=== PATIENT | male | born 1980 | race Caucasian/White ===

== ENCOUNTER 2016-05-19 08:34 | Emergency (ER) | payer OTHER ==
[~2016-05-19] VITALS: Ht 172.7 cm; Wt 114.0 kg
[2016-05-19 08:47] VITALS: TEMP 36.7; Ht 172.7 cm; Wt 114.0 kg
[2016-05-19] MEDS ORDERED: MULT-506 PO (09:26)
--- NOTE | 2016-05-19 09:53 | DIAGNOSTIC IMAGING REPORT ---
LEFT KNEE 1 OR 2 VIEWS ROUTINE CLINICAL HISTORY: Left knee pain following injury. COMPARISON: None FINDINGS: Alignment of the left knee is anatomic. No acute fracture is identified. There is a possible trace left knee joint effusion. Joint spaces are preserved. IMPRESSION: 1. No acute fracture. 2. Possible trace left knee joint effusion. Electronically signed by: Sawyer Hernandez M.D. 05/19/2016 9:52 AM Dictated Date/Time: 05/19/2016 9:51 AM
--- NOTE | 2016-05-19 10:33 | EMERGENCY ROOM VISIT NOTE ---
History First contact with patient: 08:55 Chief Complaint: KNEEPAIN Stated Complaint: KNEE PAIN,FINGER PAIN History of Present Illness The patient is a 35 year old male who presents to the Emergency Room with complaints of left knee pain. The patient states yesterday at work he slipped on a wet floor and twisted his left knee. He states since that time it hurts to bear weight on the leg or hurts to move the knee. The patient denies any hip or ankle pain. The patient admits that he had a prior strain to the anterior cruciate ligament in the past when he lived in a different state. He denies any surgery to the knee. The patient also would like me to look at his left fifth finger. He states that he had a flexor tendon repair on the finger in the past. He is now complaining of pain with movement but denies any new trauma. The patient also states that sometimes it feels like he cannot completely straighten his finger. Review of Systems 10 system review was performed and was negative unless stated otherwise history of present illness. Past Medical/Surgical History Surgical Problems: (1) H/O hernia repair Left fifth finger tendon repair Concussion, peptic ulcer disease Family History Patient reports no known family medical history. Social History Smoking Status: Never Smoker Marital Status: single Housing Status: unknown Occupation Status: employed Current/Historical Medications Scheduled Multivitamin (Multivitamin), 1 TAB PO DAILY Allergies Coded Allergies: Codeine (Unverified Allergy, Unknown, vomiting, 05/19/16) Lactose Intolerance (GI) (Unverified Allergy, Unknown, gi issues, 05/19/16) Uncoded Allergies: RED MEAT (Allergy, Intermediate, GI ISSUES, 08/24/15) Physical Exam Vital Signs Date Time Temp Pulse Resp B/P Pulse Ox O2 Delivery O2 Flow Rate FiO2 05/19/16 08:47 36.7 77 16 131/90 96 Room Air Physical Exam PHYSICAL EXAM: Vital Signs: Reviewed Nurse's notes. GEN.: MENTAL STATUS: 35-year-old white male appears in no acute distress. MENTAL Status: Alert, oriented, and cooperative. LEFT KNEE: No gross bony deformity noted. No erythema or edema noted. There is no joint effusion. The range of motion is limited secondary to pain. There is no ligamentous instability. The skin is normal and intact. LEFT FINGER: No gross bony deformity noted. There is an incision noted on the palmar aspect at the MCP joint. He does have tenderness palpation over this area as well as over the PIP joint. Limited range of motion. Medical Decision & Procedures ER Provider Diagnostic Interpretation: LEFT KNEE 1 OR 2 VIEWS ROUTINE CLINICAL HISTORY: Left knee pain following injury. COMPARISON: None FINDINGS: Alignment of the left knee is anatomic. No acute fracture is identified. There is a possible trace left knee joint effusion. Joint spaces are preserved. IMPRESSION: 1. No acute fracture. 2. Possible trace left knee joint effusion. Electronically signed by: Sawyer Hernandez M.D. 05/19/2016 9:52 AM Dictated Date/Time: 05/19/2016 9:51 AM ED Course The patient was evaluated. The patient was offered pain medication but declined. X-ray of the left knee was ordered and interpreted by the radiologist and myself as above without any acute findings. There was a small trace of joint effusion. The patient is placed in Cristobal wrap and given crutches and discharged home in stable condition. Medical Decision Differential diagnosis include ligament tear, knee strain, meniscal tear Impression Primary Impression: Sprain of knee Additional Impression: left fifth finger pain Departure Information Dispostion Home / Self-Care Condition GOOD Referrals No Doctor, Assigned (PCP) Sly Chiang MD Sefter, John C., DO Forms HOME CARE DOCUMENTATION FORM, IMPORTANT VISIT INFORMATION Patient Instructions [facility] Additional Instructions Tylenol as needed for pain. Wear Cristobal wrap and use crutches for ambulation until pain is tolerable without them. If symptoms are not improving in 3-5 days , follow-up with Dr. Lewis. If your hand pain becomes intolerable recommend appointment with Dr. Chiang, hand surgeon. Problem Qualifiers Primary Impression: Sprain of knee Encounter type: initial encounter Laterality: left
[2016-05-19 10:43] VITALS: BP 131/90; PULSE 69; O2SAT 97
== END 2016-05-19 10:44 | disposition home or self-care (01) ==
LOC: C.EDB 08:37
DX: S83.92XA Sprain of unspecified site of left knee, initial encounter (principal); M79.645 Pain in left finger(s); W01.0XXA Fall on same level from slipping, tripping and stumbling without subsequent striking against object, initial encounter; X50.1XXA Overexertion from prolonged static or awkward postures, initial encounter; Y92.69 Other specified industrial and construction area as the place of occurrence of the external cause; Z87.11 Personal history of peptic ulcer disease; Z87.820 Personal history of traumatic brain injury; Z98.890 Other specified postprocedural states

== ENCOUNTER → 2016-07-26 | Outpatient (CLI) | payer OTHER ==
[~2016-07-26] MED LIST: AMT50 PO; MULT-506 PO
--- NOTE | 2016-07-26 15:00 | DIAGNOSTIC IMAGING REPORT ---
RIGHT FOOT MIN 3 VIEWS ROUTINE CLINICAL HISTORY: Right foot pain COMPARISON: None. DISCUSSION: No acute fractures or dislocations are visualized. There are small spurs arising from the lateral base of the first metatarsal, and medial aspect of the proximal second metatarsal shaft. There is a prominent lateral process of the base the first metatarsal with a modeling deformity of the medial base the second metatarsal IMPRESSION: 1. No acute fractures 2. Arthritic changes involving the lateral base of the first metatarsal and medial aspect of the proximal second metatarsal Electronically signed by: Alpesh Alaniz M.D. 07/26/2016 2:58 PM Dictated Date/Time: 07/26/2016 2:54 PM
== END | disposition home or self-care (01) ==
LOC: C.RADBC 14:35
PROVIDERS: ATTEND Family Medicine
DX: M79.671 Pain in right foot (principal)

== ENCOUNTER → 2016-08-13 | Outpatient (CLI) | payer OTHER ==
--- NOTE | 2016-08-13 11:23 | DIAGNOSTIC IMAGING REPORT ---
CERVICAL SPINE 5 VIEWS HISTORY: M54.2 [id number] COMPARISON: None. FINDINGS: The cervical spine is visualized from C1 through the superior endplate of T1. There is no fracture. No subluxation. Disc spaces are preserved. Prevertebral soft tissues and the atlantodens interval are intact. Straightening of the cervical spine. IMPRESSION: No fracture or subluxation within the cervical spine. No significant degenerative disc disease. Straightening of the cervical spine. Electronically signed by: Bright Ordaz M.D. 08/13/2016 11:22 AM Dictated Date/Time: 08/13/2016 11:20 AM
== END | disposition home or self-care (01) ==
LOC: C.RADBC 11:02
PROVIDERS: ATTEND Family Medicine
DX: M54.2 Cervicalgia (principal)

== ENCOUNTER 2016-08-23 10:36 | Emergency (ER) | payer OTHER ==
[~2016-08-23] VITALS: Ht 200.7 cm; Wt 103.7 kg
[~2016-08-23 10:36] MED LIST changes: -AMT50 PO
[2016-08-23 10:40] VITALS: TEMP 36.4; Ht 200.7 cm; Wt 103.7 kg
[2016-08-23] MEDS ORDERED: AMT50 PO (10:48)
[2016-08-23 12:15] LABS: BASO % 0.4 %; BASO ABS # 0.03 K/uL (0-0.2); COMPLETE YES; HEMATOCRIT 43.3 % (42-52); IG% 0.1 %; LYMPH % 26.1 %; LYMPH ABS # 1.83 K/uL (1.2-3.4); MEAN CELL VOLUME 85.2 fL (80-100); MEAN CORPUSCULAR HEMOGLOBIN 29.9 pg (25-34); MEAN CORPUSCULAR HGB CONC 35.1 g/dl (32-36); MEAN PLATELET VOLUME 9.4 fL (7.4-10.4); MONO % 9.3 %; NEUT % 62.1 %; PLATELET COUNT 271 K/uL (130-400); RED BLOOD COUNT 5.08 M/uL (4.7-6.1); WHITE BLOOD COUNT 7.02 K/uL (4.8-10.8)
--- NOTE | 2016-08-23 12:17 | DIAGNOSTIC IMAGING REPORT ---
CHEST 2 VIEWS ROUTINE CLINICAL HISTORY: SOB dyspnea COMPARISON STUDY: No previous studies for comparison. FINDINGS: The bones soft tissues and hemidiaphragms are normal. The cardiomediastinal silhouette is normal. The lungs are clear. The pulmonary vasculature is normal. IMPRESSION: Negative chest. Electronically signed by: Keyon Cole M.D. 08/23/2016 12:15 PM Dictated Date/Time: 08/23/2016 12:15 PM
[2016-08-23 12:30] LABS: BUN/CREATININE RATIO 9.1 (10-20); CALCIUM 8.9 mg/dl (8.5-10.1); CREATININE 0.89 mg/dl (0.60-1.40); POTASSIUM 4.1 mmol/L (3.5-5.1)
[2016-08-23 12:41] LABS: THYROID STIMULATING HORMONE 2.58 uIu/ml (0.300-4.500)
--- NOTE | 2016-08-23 12:59 | DIAGNOSTIC IMAGING REPORT ---
CT SCAN OF THE BRAIN WITHOUT IV CONTRAST CLINICAL HISTORY: Headache. COMPARISON STUDY: CT of the brain dated 08/24/2015. TECHNIQUE: Unenhanced axial CT scan of the brain is performed from the vertex to the skull base. Automated dose control exposure was utilized. CT DOSE: 1115.89 mGy.cm FINDINGS: Brain parenchyma: The brain parenchyma is normal in appearance. There is no hemorrhage, mass effect, or evidence of acute territorial ischemia by CT criteria. Rucker-white matter is preserved. No extra-axial fluid collection is seen. Ventricles, sulci, cisterns: Normal in configuration. Intracranial vasculature: The visualized intracranial vasculature at the skull base is normal in appearance. Calvarium: Unremarkable. Sinuses and mastoids: There is trace mucosal thickening within the maxillary antra. The remaining visualized paranasal sinuses are clear. The mastoid air cells are well pneumatized. Orbits: The bony orbits are grossly intact. IMPRESSION: No acute intracranial abnormality. Electronically signed by: Tonny Dominguez M.D. 08/23/2016 12:57 PM Dictated Date/Time: 08/23/2016 12:56 PM
--- NOTE | 2016-08-23 13:01 | DIAGNOSTIC IMAGING REPORT ---
CT SCAN OF THE CERVICAL SPINE CLINICAL HISTORY: Neck pain. COMPARISON STUDY: Radiographs of the cervical spine dated 08/13/2016. TECHNIQUE: CT scan of the cervical spine is performed from the skull base to the upper thoracic spine. Images are reviewed in the axial, sagittal, and coronal planes. IV contrast was not administered for this examination. CT DOSE: Reported separately and the concurrently performed CT scan of the brain. FINDINGS: Skeletal structures: The skeletal structures are well mineralized. There is no evidence of fracture or subluxation involving the cervical spine. Vertebral body height and alignment are maintained. There is straightening of the cervical lordosis with mild reversal centered at C4-C5. The odontoid process and lateral masses are intact. The atlantoaxial articulation is preserved. The spinous processes appear intact. Intervertebral discs: The disc spaces are well maintained. Central canal: Widely patent. Soft tissues: The prevertebral and paraspinous soft tissues are within normal limits. Calvarium: The visualized calvarium at the skull base appears intact. Brain parenchyma: Partially visualized brain parenchyma the skull base is within normal limits. Sinuses and mastoids: The visualized paranasal sinuses are clear. The mastoid air cells are well pneumatized. Lung apices: Clear as visualized. IMPRESSION: Unremarkable CT scan of the cervical spine. Electronically signed by: Tonny Dominguez M.D. 08/23/2016 12:59 PM Dictated Date/Time: 08/23/2016 12:57 PM
[2016-08-23 13:12] LABS: LYME DISEASE AB IGG NEG (NEG); LYME DISEASE AB IGM NEG (NEG)
[2016-08-23 14:05] VITALS: BP 138/70; PULSE 67; O2SAT 95
--- NOTE | 2016-08-23 19:57 | EMERGENCY ROOM VISIT NOTE ---
ED Visit Note First contact with patient: 11:23 Chief Complaint: Neck pain. History of Present Illness: Mr. Herring is a 35-year-old white male who ambulates into the ED complaining of pain at the base of the skull and the top of the cervical spine. Historically he reports he has seen his PCP, Dr. Vitaliy Galarza, for migraine headaches and neck pain. Patient feels these are 2 separate issues and believes his PCP does also. He has been put on muscle relaxers for his neck pain but has only used it twice because he did not feel like it was working and he has been using amitriptyline for his migraine headaches which she feel is working. He also reports historically that he had a concussion approximately one year ago and he is currently in physical therapy and he reports Dr. Galarza is unsure if his headaches and neck pain are related to that injury and this is a postconcussive syndrome. Patient reports approximately 10 days ago he started having pain at the base of the skull and the top of the cervical spine. He feels it's more prominent on the left than the right but it is present in both areas. He describes his pain as a burning sensation. At rest he rates his discomfort 2/10 and with rotational movements and extension of the cervical spine his pain becomes 8/10. He has not identified any other aggravating factors. He has moderate relief when he is not moving his head. He has not taken anything additional for pain. Associated with his pain he reports with movement his becomes dizzy, short of breath and his right lower leg becomes weak. He denies fevers, chills, sweats, skin eruptions, skin color changes, recent head trauma, recent neck trauma, visual changes, hearing changes, difficulty speaking, difficult swallowing, difficulty ambulating/coordinating body movements, insect bites, upper respiratory tract symptoms, chest pain, abdominal pain, nausea/vomiting, recent leg trauma, upper extremity weakness, numbness/paresthesias of the extremities. Review of Systems: As noted above in history of present illness. All body systems were reviewed and found to be negative as noted above. Past Medical History: As previously noted, gastric ulcers, umbilical hernia repair. Current Medications: Elavil, multivitamins. Allergies to Medications: Codeine, lactose intolerant. Social History: Patient is currently employed; he feels safe in his home environment; he denies tobacco use; he admits to alcohol use. Physical Examination: Vital Signs: Date Time Temp Pulse Resp B/P Pulse Ox O2 Delivery O2 Flow Rate FiO2 08/23/16 14:05 67 16 138/70 95 08/23/16 10:40 36.4 85 18 132/83 97 Room Air GENERAL: 35-year-old male in mild distress due to pain, nontoxic-appearing, afebrile and hemodynamically stable. NEUROLOGICAL: Awake, alert and oriented to person, place and time. Answering questions appropriately and following commands. Normal gait. Good hand eye coordination. No focal motor or sensory deficits. Cranial nerves II through XII grossly intact. SKIN: Warm, dry and pink. No soft tissue eruptions or trauma noted. HEENT: Atraumatic and normocephalic. PERRLA. EOMI without nystagmus. Sclera white and conjunctiva pink. No drainage from naris. Oral cavity moist and pink. Pharynx is nonerythematous or edematous. Speech normal. No lymphadenopathy. Trachea midline. No jugular venous distention. BACK: Mild tenderness on the right base of the skull and superior cervical spine. No palpable bony deformities, bony crepitus, step-offs, swelling or ecchymosis. Full range of motion of the cervical spine. THORAX: Lungs sounds are clear to auscultation and equal bilaterally with symmetrical chest wall. No wheezing, rales or rhonchi. HEART: Regular rate and rhythm. No gallops, rubs or murmurs are appreciated. ABDOMEN: Flat, soft and nontender. Positive bowel sounds in all quadrants. No guarding, rigidity or organomegaly. EXTREMITIES: Moves all extremities well on command and with purpose. All distal neurovascular statuses are intact and equal bilaterally. No calf tenderness or cords. 4/5 muscle strength in hip flexion, extension, abduction and abduction, internal and external rotation, knee flexion and extension, ankle plantar flexion and dorsiflexion. He was able to distinguish light sensations through all dermatomes of the lower legs. ED Course: Patient is assessed as noted above. Laboratory Testing: Test 08/23/16 11:55 Range/Units White Blood Count 7.02 4.8-10.8 K/uL Red Blood Count 5.08 4.7-6.1 M/uL Hemoglobin 15.2 14.0-18.0 g/dL Hematocrit 43.3 42-52 % Mean Corpuscular Volume 85.2 80-100 fL Mean Corpuscular Hemoglobin 29.9 25-34 pg Mean Corpuscular Hemoglobin Concent 35.1 32-36 g/dl Platelet Count 271 130-400 K/uL Mean Platelet Volume 9.4 7.4-10.4 fL Neutrophils (%) (Auto) 62.1 % Lymphocytes (%) (Auto) 26.1 % Monocytes (%) (Auto) 9.3 % Eosinophils (%) (Auto) 2.0 % Basophils (%) (Auto) 0.4 % Neutrophils # (Auto) 4.36 1.4-6.5 K/uL Lymphocytes # (Auto) 1.83 1.2-3.4 K/uL Monocytes # (Auto) 0.65 0.11-0.59 K/uL Eosinophils # (Auto) 0.14 0-0.5 K/uL Basophils # (Auto) 0.03 0-0.2 K/uL RDW Standard Deviation 38.3 36.4-46.3 fL RDW Coefficient of Variation 12.4 11.5-14.5 % Immature Granulocyte % (Auto) 0.1 % Immature Granulocyte # (Auto) 0.01 0.00-0.02 K/uL Sodium Level 142 136-145 mmol/L Potassium Level 4.1 3.5-5.1 mmol/L Chloride Level 107 98-107 mmol/L Carbon Dioxide Level 30 21-32 mmol/L Anion Gap 5.0 3-11 mmol/L Blood Urea Nitrogen 8 7-18 mg/dl Creatinine 0.89 0.60-1.40 mg/dl Est Creatinine Clear Calc Drug Dose 156.5 ml/min Estimated GFR () 130.2 Estimated GFR (Non- 112.3 BUN/Creatinine Ratio 9.1 10-20 Random Glucose 87 70-99 mg/dl Calcium Level 8.9 8.5-10.1 mg/dl Total Bilirubin 1.2 0.2-1 mg/dl Direct Bilirubin 0.3 0-0.2 mg/dl Aspartate Amino Transf (AST/SGOT) 17 15-37 U/L Alanine Aminotransferase (ALT/SGPT) 41 12-78 U/L Alkaline Phosphatase 78 45-117 U/L Total Protein 8.1 6.4-8.2 gm/dl Albumin 4.3 3.4-5.0 gm/dl Thyroid Stimulating Hormone (TSH) 2.580 0.300-4.500 uIu/ml Lyme Disease IgG Antibody NEG NEG Lyme Disease IgM Antibody NEG NEG Head CT: Was reviewed by myself and read by the radiologist and shows no acute cranial abnormalities or bleeding. No skull fractures. Cervical spine CT: Was reviewed by myself and the radiologist and shows no acute fractures or subluxations. No appearance of degenerative changes. Chest x-rays: Was read by myself and the radiologist showing no acute infiltrates, effusions or pneumothorax. Normal heart silhouette and bony anatomy. Patient was hydrated with normal saline; he was offered pain medications and refused. Patient's case was reviewed with Dr. Sexton; we agreed on diagnostic approach, treatment, disposition and plan. Patient was educated about today's findings and instructed on his treatment plan ; he verbalizes understanding and agreement with this plan. Clinical Impression: Cervical spine pain. Decision-Making: Initially my differential diagnosis I considered degenerative disc disease, herniated disc, intracranial bleed, meningitis, Lyme's disease, electrolyte abnormality, and other causes. Disposition: Patient discharged home in stable condition accompanied by female friends; prior to departure he was reassessed and subjectively reported he was feeling better. Plan: Continue your current medications as prescribed by your primary care provider. Use 650 mg of acetaminophen every 6 hours as needed for pain. Also consider using ice on areas of pain 5-6 times a day for 20-30 minutes. Call your family physician this afternoon or early tomorrow and inform them of today's ED visit and request follow-up care and treatment. Also talk about possible an MRI before your upcoming neurologist appointment. Return to the ED for worsening pain, fevers, vomiting, worsening other symptoms including shortness of breath or leg weakness or any new/concerning symptoms.
== END 2016-08-23 14:05 | disposition home or self-care (01) ==
LOC: C.EDB 10:38 → C.EDA 14:05
DX: M54.2 Cervicalgia (principal)

== ENCOUNTER → 2016-10-15 | Outpatient (CLI) | payer OTHER ==
[~2016-10-15] MED LIST changes: +AMT50 PO
[2016-10-15 11:12] LABS: BASO % 0.3 %; BASO ABS # 0.02 K/uL (0-0.2); COMPLETE YES; EOS % 2.5 %; HEMATOCRIT 45.1 % (42-52); IG% 0.1 %; LYMPH % 30.3 %; LYMPH ABS # 2.02 K/uL (1.2-3.4); MEAN CELL VOLUME 85.7 fL (80-100); MEAN CORPUSCULAR HEMOGLOBIN 29.8 pg (25-34); MEAN CORPUSCULAR HGB CONC 34.8 g/dl (32-36); MEAN PLATELET VOLUME 10.1 fL (7.4-10.4); MONO % 6.4 %; NEUT % 60.4 %; PLATELET COUNT 279 K/uL (130-400); RED BLOOD COUNT 5.26 M/uL (4.7-6.1); WHITE BLOOD COUNT 6.67 K/uL (4.8-10.8)
[2016-10-15 11:33] LABS: ALT/SGPT 38 U/L (12-78); BLOOD UREA NITROGEN 8 mg/dl (7-18); CALCIUM 8.9 mg/dl (8.5-10.1); CARBON DIOXIDE 27 mmol/L (21-32); CHLORIDE 107 mmol/L (98-107); CHOLESTEROL 171 mg/dl (0-200); CREATININE 0.89 mg/dl (0.60-1.40); GLUCOSE 96 mg/dl (70-99); POTASSIUM 3.9 mmol/L (3.5-5.1); SODIUM 140 mmol/L (136-145); TRIGLYCERIDES 146 mg/dl (0-150); VERY LOW DENSITY LIPOPROT CALC 29 mg/dl
[2016-10-15 11:43] LABS: ALB/GLOB RATIO 1.1 (0.9-2); ALKALINE PHOSPHATASE 62 U/L (45-117); AST/SGOT 19 U/L (15-37); HDL CHOLESTEROL 43 mg/dl; LDL CHOLESTEROL CALCULATED 99 mg/dl
[2016-10-15 13:47] LABS: LYME DISEASE AB IGG NEG (NEG)
[2016-10-15 13:53] LABS: LYME DISEASE AB IGM NEG (NEG)
[2016-10-16 00:36] LABS: RAPID PLASMA REAGIN NONREACTIVE (NONREACT)
== END | disposition home or self-care (01) ==
LOC: C.LABBC 08:46
PROVIDERS: ATTEND Physician Assistant
DX: Z13.220 Encounter for screening for lipoid disorders (principal); G43.909 Migraine, unspecified, not intractable, without status migrainosus

== ENCOUNTER 2017-04-01 18:08 | Emergency (ER) | payer OTHER ==
[~2017-04-01] VITALS: Ht 200.7 cm; Wt 109.7 kg
[2017-04-01 18:25] VITALS: TEMP 36.4; Ht 200.7 cm; Wt 109.7 kg
[2017-04-01] MEDS ORDERED: KETOROLAC TROMETHAMINE 60 MG/2 ML VIAL IM STA (19:52)
[2017-04-01] MEDS ORDERED: PROCHLORPERAZINE 5 MG/ML 2 ML VIAL IM STA (19:52)
[2017-04-01] MEDS ORDERED: DiphenhydrAMINE HCL 50 MG/ML VIAL IM STA (19:52)
[2017-04-01] MEDS ORDERED: RANITIDINE HCL 150 MG TAB PO ONE (20:00)
[2017-04-01] MEDS ORDERED: BUTALBITAL/ACETAMIN/CAFFEINE TAB PO STA (20:49)
--- NOTE | 2017-04-01 20:50 | EMERGENCY ROOM VISIT NOTE ---
History Report prepared by Travis: Matthias Gillespie Under the Supervision of: Dr. Taco Bennett M.D. First contact with patient: 19:42 Chief Complaint: HEAD PAIN Stated Complaint: DIZZINESS,MIRGRAINS,CONFUSED History of Present Illness The patient is a 36 year old male who presents to the Emergency Room with complaints of worsening headaches and dizziness after a garbage can lid hit him in the head 7 days ago. Patient has a history of migraines since a previous concussion that occurred in August 2014. He states that he vomited and was dizzy right when the episode occurred. He states that he feels "off balance" and "has felt off" for the past 4 days. Patient has associated symptoms of a stiff neck for the past 7 days. He denies pain in his arms and legs. Patient adds that he has not slept well for over 2 years. He states that he has taken Prilosec in the past. He adds that he has no bowel movement problems. He has not taken Tylenol. Patient states his stomach is sensitive to medications. Source of History: patient Onset: 7 days ago Position: head Timing: worsening Associated Symptoms: + neck pain (Stiff), + vomiting Note: Patient adds that he has dizziness. Patient denies arm and leg pain. Review of Systems See HPI for pertinent positives & negatives. A total of 10 systems reviewed and were otherwise negative. Past Medical & Surgical Surgical Problems: (1) H/O hernia repair Family History FHx: cancer FHx: heart disease FHx: hypertension Social History Smoking Status: Never Smoker Marital Status: single Housing Status: unknown Occupation Status: employed Current/Historical Medications Scheduled Amitriptyline Hcl (Elavil), 10 MG PO HS Multivitamin (Multivitamin), 1 TAB PO DAILY Allergies Coded Allergies: Codeine (Unverified Allergy, Unknown, vomiting, 05/19/16) Lactose Intolerance (GI) (Unverified Allergy, Unknown, gi issues, 05/19/16) Uncoded Allergies: RED MEAT (Allergy, Intermediate, GI ISSUES, 08/24/15) Physical Exam Vital Signs Date Time Temp Pulse Resp B/P (MAP) Pulse Ox O2 Delivery O2 Flow Rate FiO2 04/01/17 21:00 71 16 122/73 98 04/01/17 18:25 36.4 96 20 105/81 98 Room Air Physical Exam GENERAL: Patient is well appearing and in mild distress. HEAD: No acute trauma, normocephalic atraumatic ENT: Mucous membranes moist, no nasal congestion. EYES: Equal/Reactive Bilaterally, No scleral icterus, Normal ROM NECK: No nuchal rigidity, no meningismus, trachea is midline, full ROM LUNGS: No dyspnea. Clear to auscultation and equal bilaterally. No wheeze, no rhonchi. HEART: Regular rate and rhythm. No murmurs, rubs, gallops appreciated. ABDOMEN: Soft, nontender, bowel sounds positive, no masses appreciated, no peritonitis. BACK: No midline tenderness, no CVA tenderness EXTREMITIES: Normal motion all extremities, no cyanosis, no edema. NEUROLOGIC: Awake, Alert, Oriented, no acute motor or sensory deficits, no focal weakness, cranial nerves grossly intact. SKIN: No rash, no jaundice, no diaphoresis. Medical Decision & Procedures Medications Administered Medications (Trade) Dose Ordered Sig/Celestino Route Start Time Stop Time Status Last Admin Dose Admin Prochlorperazine Edisylate (Compazine Inj) 10 mg NOW STAT IM 04/01/17 19:52 04/01/17 19:53 DC 04/01/17 20:02 10 MG Ketorolac Tromethamine (Toradol Inj) 60 mg NOW STAT IM 04/01/17 19:52 04/01/17 19:53 DC 04/01/17 20:01 60 MG Diphenhydramine HCl (Benadryl Inj) 50 mg NOW STAT IM 04/01/17 19:52 04/01/17 19:53 DC 04/01/17 20:01 50 MG Ranitidine HCl (zANTac TAB) 150 mg NOW ONCE PO 04/01/17 20:00 04/01/17 20:01 DC 04/01/17 20:00 150 MG ED Course 1944: The patient was evaluated in room A3. A complete history and physical exam was performed. 2044: Reevaluated the patient. Discussed results and discharge instructions. He verbalized understanding and agreement. The patient is ready for discharge. Medical Decision Differential: Headache, Migraine, Cluster Headache, Seizure, Meningitis, Sinusitis, CO exposure, ICH/SAH, Infectious, Tumor, Sinus Thrombosis, Arterial Dissection, amongst other pathologies entertained. 36 yr old male with concussion 2 years ago from head trauma. Notes chronic headaches/migraines which was exacerbated a few days ago by mild bump to head by lid of trash can. This was note significant enough to suspect ICH/fracture and he has no neuro deficits. Reviewed the possibility to do imaging though wishes to hold off which seems reasonable. Given above with improvement ( zantac as some GI issues previously with NSAIDs). Will give Fioricet tabs for at home as needed though made clear if worsening or other concerning symptoms return for re-evaluation. He does not have evidence of meningitis, ich, dissection. Noted stiff neck but no issues with ROM and it is clearly no rigidity. Home with mother and both comfortable with plan. Medication Reconcilliation Current Medication List: was personally reviewed by me Blood Pressure Screening Patient's blood pressure: Normal blood pressure Blood pressure disposition: Did not require urgent referral Impression Primary Impression: Migraine Scribe Attestation The scribe's documentation has been prepared under my direction and personally reviewed by me in its entirety. I confirm that the note above accurately reflects all work, treatment, procedures, and medical decision making performed by me. Departure Information Dispostion Home / Self-Care Referrals Kalpana Barba PA-C (PCP) Forms HOME CARE DOCUMENTATION FORM, IMPORTANT VISIT INFORMATION, WORK / SCHOOL INSTRUCTIONS Patient Instructions ED Headache Migraine, [facility]
[2017-04-01 21:00] VITALS: BP 122/73; PULSE 71; O2SAT 98
== END 2017-04-01 21:01 | disposition home or self-care (01) ==
LOC: C.EDB 18:10 → C.EDA 21:01
DX: G43.909 Migraine, unspecified, not intractable, without status migrainosus (principal); W22.8XXA Striking against or struck by other objects, initial encounter; Y92.9 Unspecified place or not applicable; Z80.9 Family history of malignant neoplasm, unspecified; Z82.49 Family history of ischemic heart disease and other diseases of the circulatory system; Z79.899 Other long term (current) drug therapy

== ENCOUNTER → 2017-06-26 | Outpatient (CLI) | payer OTHER ==
--- NOTE | 2017-06-27 11:43 | EEG Procedure Note ---
EEG Procedure Note Date of Service Jun 26, 2017. Start / End Times Start Time: 1:19 PM End Time: 1:39 PM Referring Physician Andrey Bianchi History This is a 36-year-old male with syncope. EEG for further evaluation of possible seizure etiology. Home Medication List Scheduled Amitriptyline Hcl (Elavil), 10 MG PO HS Multivitamin (Multivitamin), 1 TAB PO DAILY Description This is a 21 electrode EEG with a single channel dedicated to limited EKG. The electrodes were placed in accordance with the International 10-20 system. At the start of the recording the patient was in an awake state. Background was well organized and composed of symmetric mixed alpha and beta frequencies. There was a symmetric well-formed moderate amplitude 8-9Hz posterior dominant rhythm that was reactive to eye opening and closure. Hyperventilation was not done. Intermittent photic stimulation at various frequencies produced no abnormalities. There was no state changes or sleep transients. Interpretation This is a normal awake only routine EEG. There was no electrographic seizures or epileptiform discharges. Clinical Correlation A normal EEG does not rule out epilepsy if there is a strong clinical suspicion.
== END | disposition home or self-care (01) ==
LOC: C.NEUR 13:07
PROVIDERS: ATTEND Psychiatry & Neurology Neurology
DX: R55 Syncope and collapse (principal)